=== PATIENT | male | born 1965 | race Caucasian/White ===

== ENCOUNTER 2016-11-06 21:41 | Inpatient (IN) | payer MEDICAID ==
[~2016-11-06] VITALS: Ht 170.2 cm; Wt 124.4 kg
[~2016-11-06 21:41] MED LIST: ASPI-556 PO; DILT30 PO; FLUO-191 PO; GABA-531 PO; NALT50 PO; OLAN5Z PO; TOPI25 PO
[2016-11-06] MEDS ORDERED: HALOPERIDOL 5 MG TABLET PO PRN (22:15)
[2016-11-06 22:25] VITALS: BP 123/75
[2016-11-06] MEDS ORDERED: INFLUENZA VIRUS VACCINE QVS 2016-17 (3YR+)/PF 60 MCG/0.5 ML SYRINGE IM ONE (22:45)
[2016-11-06] MEDS ORDERED: -PHARMACY VACCINE NOTE- MISC ONE ×2 (22:45)
[2016-11-07] MEDS: LORazepam 2 MG TABLET PO PRN ×2 (00:04→20:21)
[2016-11-07] MEDS: ZOLPIDEM TARTRATE 10 MG TABLET PO PRN ×2 (00:04→21:01)
[2016-11-07 00:39] VITALS: BP 124/69
[2016-11-07 07:50] LABS: BASOPHILS % (AUTO) 0.4 % (0.0-2.0); EOSINOPHILS % (AUTO) 6.7 % (1.0-6.0); HEMOGLOBIN 14.4 g/dL (13.5-17.5); LYMPHOCYTES % (AUTO) 13.4 % (22.0-44.0); MEAN CORPUSCULAR HEMOGLOBIN 28.3 pg (26.0-34.0); MEAN CORPUSCULAR HGB CONC 32.7 G/dL (31.0-37.0); MEAN CORPUSCULAR VOLUME 87 fL (80-100); MONOCYTES # (AUTO) 0.5 K/uL (0.1-1.0); MONOCYTES % (AUTO) 6.9 % (2.0-9.0); NEUTROPHILS # (AUTO) 5.3 K/uL (1.8-7.7); NEUTROPHILS % (AUTO) 72.6 % (40.0-70.0); PLATELET COUNT (AUTO) 122 K/uL (150-450); RED BLOOD CELL COUNT(AUTO) 5.08 MIL/uL (4.50-5.90); RED CELL DISTRIBUTION WIDTH 14.7 % (11.5-14.5); WHITE BLOOD COUNT (AUTO) 7.3 K/uL (4.5-11.0)
[2016-11-07 08:05] VITALS: BP 113/62
[2016-11-07 08:07] LABS: HEMOGLOBIN A1C 5.7 % (4.5-6.2)
[2016-11-07 08:27] LABS: ALANINE AMINOTRANSFERASE 42 U/L (12-78); ALBUMIN 3.1 g/dL (3.4-5.0); ANION GAP 8 mmol/L (8-16); ASPARTATE AMINOTRANSFERASE 38 U/L (15-37); BILIRUBIN,TOTAL 0.3 mg/dL (0.1-1.0); CALCIUM, TOTAL 8.6 mg/dL (8.8-10.5); CARBON DIOXIDE 29 mmol/L (22-29); CHLORIDE 103 mmol/L (98-107); CHOL/HDL RATIO 5.3 (4.2-7.3); CREATININE 0.87 mg/dL (0.60-1.30); GLOMERULAR FILTR. RATE CALC > 60 mL/min (>60); POTASSIUM 4.1 mmol/L (3.5-5.1); SODIUM SERUM 140 mmol/L (136-145); THYROID STIMULATING HORMONE 2.72 uIU/mL (0.36-3.74); TOTAL PROTEIN, SERUM 6.7 g/dL (6.4-8.2); UREA NITROGEN, BLOOD 11 mg/dL (7-18)
[2016-11-07] MEDS ORDERED: IBUPROFEN 400 MG TABLET PO PRN ×2 (10:00→22:00)
[2016-11-07] MEDS ORDERED: ACETAMINOPHEN 325 MG TABLET PO PRN ×2 (10:00→22:00)
[2016-11-07] MEDS: FLUoxetine HCL 20 MG CAPSULE PO SCH (13:33)
[2016-11-07 16:08] VITALS: BP 124/72
[2016-11-07] MEDS: OLANZapine 5 MG RAPDIS TABLET PO SCH (20:21)
[2016-11-08 07:10] VITALS: BP 124/73
[2016-11-08 08:29] VITALS: BP 115/65
[2016-11-08] MEDS: FLUoxetine HCL 20 MG CAPSULE PO SCH (08:33)
[2016-11-08] MEDS: ASPIRIN 81 MG EC TABLET PO SCH (08:33)
[2016-11-08] MEDS: DILTIAZEM HCL 30 MG TABLET PO SCH ×3 (08:33→16:21)
[2016-11-08 09:41] LABS: CHOL/HDL RATIO 5.1 (4.2-7.3)
[2016-11-08 16:00] VITALS: BP 130/76
[2016-11-08] MEDS: LORazepam 2 MG TABLET PO PRN (16:21)
[2016-11-08] MEDS: ZOLPIDEM TARTRATE 10 MG TABLET PO PRN (21:08)
[2016-11-08] MEDS: OLANZapine 5 MG RAPDIS TABLET PO SCH (21:08)
[2016-11-09 06:34] VITALS: BP 132/79
[2016-11-09 08:04] VITALS: BP 112/65
[2016-11-09] MEDS: DILTIAZEM HCL 30 MG TABLET PO SCH ×3 (08:38→16:27)
[2016-11-09] MEDS: ASPIRIN 81 MG EC TABLET PO SCH (08:38)
[2016-11-09] MEDS: FLUoxetine HCL 20 MG CAPSULE PO SCH (08:38)
[2016-11-09 16:09] VITALS: BP 138/78
[2016-11-09] MEDS: ZOLPIDEM TARTRATE 10 MG TABLET PO PRN (20:38)
[2016-11-09] MEDS: OLANZapine 5 MG RAPDIS TABLET PO SCH (20:38)
[2016-11-10 06:53] VITALS: BP 146/80
[2016-11-10 08:22] VITALS: BP 152/75
[2016-11-10] MEDS: DILTIAZEM HCL 30 MG TABLET PO SCH ×3 (09:04→16:02)
[2016-11-10] MEDS: FLUoxetine HCL 20 MG CAPSULE PO SCH (09:04)
[2016-11-10] MEDS: ASPIRIN 81 MG EC TABLET PO SCH (09:04)
[2016-11-10] MEDS: LORazepam 2 MG TABLET PO PRN ×3 (09:12→22:45)
[2016-11-10 16:00] VITALS: BP 133/85
[2016-11-10] MEDS: OLANZapine 5 MG RAPDIS TABLET PO SCH (20:06)
[2016-11-10] MEDS: ZOLPIDEM TARTRATE 10 MG TABLET PO PRN (20:08)
[2016-11-11 06:45] VITALS: BP 116/77
[2016-11-11 08:05] VITALS: BP 102/68
[2016-11-11] MEDS: FLUoxetine HCL 20 MG CAPSULE PO SCH (09:05)
[2016-11-11] MEDS: ASPIRIN 81 MG EC TABLET PO SCH (09:05)
[2016-11-11] MEDS: DILTIAZEM HCL 30 MG TABLET PO SCH ×3 (09:05→16:27)
[2016-11-11] MEDS: LORazepam 2 MG TABLET PO PRN (15:57)
[2016-11-11 16:00] VITALS: BP 135/83
[2016-11-11] MEDS: OLANZapine 5 MG RAPDIS TABLET PO SCH (20:27)
[2016-11-11] MEDS: ZOLPIDEM TARTRATE 10 MG TABLET PO PRN (20:45)
[2016-11-12] MEDS: LORazepam 2 MG TABLET PO PRN ×3 (00:08→16:08)
[2016-11-12 08:05] VITALS: BP 118/57
[2016-11-12] MEDS: DILTIAZEM HCL 30 MG TABLET PO SCH ×3 (09:34→16:08)
[2016-11-12] MEDS: FLUoxetine HCL 20 MG CAPSULE PO SCH (09:34)
[2016-11-12] MEDS: ASPIRIN 81 MG EC TABLET PO SCH (09:35)
[2016-11-12 16:00] VITALS: BP 144/82
[2016-11-12] MEDS: OLANZapine 5 MG RAPDIS TABLET PO SCH (20:56)
[2016-11-12] MEDS: ZOLPIDEM TARTRATE 10 MG TABLET PO PRN (21:10)
[2016-11-13 01:18] VITALS: BP 138/94
[2016-11-13] MEDS: LORazepam 2 MG TABLET PO PRN (01:19)
[2016-11-13 08:05] VITALS: BP 112/71
[2016-11-13] MEDS: FLUoxetine HCL 20 MG CAPSULE PO SCH (10:06)
[2016-11-13] MEDS: ASPIRIN 81 MG EC TABLET PO SCH (10:06)
[2016-11-13] MEDS: DILTIAZEM HCL 30 MG TABLET PO SCH ×2 (10:06→13:55)
== END 2016-11-13 15:15 | disposition home or self-care (01) | DRG 754 ==
LOC: B3A 22:04 → EDSTATUS 22:08
PROVIDERS: ADMIT Psychiatry & Neurology Psychiatry; ATTEND Psychiatry & Neurology Psychiatry
DX: F32.9 Major depressive disorder, single episode, unspecified (principal); I48.91 Unspecified atrial fibrillation; R45.851 Suicidal ideations; I10 Essential (primary) hypertension; I25.10 Atherosclerotic heart disease of native coronary artery without angina pectoris; Z95.0 Presence of cardiac pacemaker; Z28.21 Immunization not carried out because of patient refusal; Z88.0 Allergy status to penicillin; Z82.0 Family history of epilepsy and other diseases of the nervous system
CPT/HCPCS: 83036; 84439; 84443; 90471

== ENCOUNTER 2017-09-06 23:53 | Inpatient (IN) | payer MEDICAID ==
[~2017-09-06] VITALS: Ht 170.2 cm; Wt 120.0 kg
[~2017-09-06 23:53] MED LIST changes: -GABA-531 PO; -NALT50 PO; +OLAN5TAB40 PO; -OLAN5Z PO; -TOPI25 PO
[2017-09-07] MEDS ORDERED: DILT60SR PO (02:27)
[2017-09-07] MEDS ORDERED: METO50 PO (02:27)
[2017-09-07] MEDS ORDERED: SERT100T12 PO (02:27)
[2017-09-07] MEDS ORDERED: DILTIAZEM HCL 5 MG/ML 5 ML VIAL IVP ONE (03:15)
[2017-09-07] MEDS ORDERED: LORazepam 2 MG/ML VIAL IVP ONE (03:15)
[2017-09-07] MEDS ORDERED: SODIUM CHLORIDE 0.9% 1,000 ML IV ONE (03:15)
[2017-09-07] MEDS ORDERED: ASPIRIN 81 MG CHEWABLE TABLET PO ONE (03:15)
[2017-09-07 03:32] LABS: BASOPHILS # (AUTO) 0.02 K/uL (0.00-0.20); BASOPHILS % (AUTO) 0.2 % (0.0-2.0); EOSINOPHILS # (AUTO) 0.28 K/uL (0.00-0.70); EOSINOPHILS % (AUTO) 3.45 % (1.0-6.0); HEMATOCRIT 46.2 % (41-53); HEMOGLOBIN 15.3 g/dL (13.5-17.5); LYMPHOCYTES # (AUTO) 1.5 K/uL (1.0-4.8); LYMPHOCYTES % (AUTO) 18.1 % (22.0-44.0); MEAN CORPUSCULAR HEMOGLOBIN 28.9 pg (26.0-34.0); MEAN CORPUSCULAR HGB CONC 33.1 G/dL (31.0-37.0); MEAN CORPUSCULAR VOLUME 87 fL (80-100); MONOCYTES # (AUTO) 0.6 K/uL (0.1-1.0); MONOCYTES % (AUTO) 6.8 % (2.0-9.0); NEUTROPHILS # (AUTO) 5.8 K/uL (1.8-7.7); NEUTROPHILS % (AUTO) 71.4 % (40.0-70.0); PLATELET COUNT (AUTO) 103 K/uL (150-450); RED CELL DISTRIBUTION WIDTH 14.7 % (11.5-14.5); WHITE BLOOD COUNT (AUTO) 8.1 K/uL (4.5-11.0)
[2017-09-07 03:40] LABS: ANION GAP 9 mmol/L (8-16); CALCIUM, TOTAL 8.5 mg/dL (8.8-10.5); CARBON DIOXIDE 27 mmol/L (22-29); CHLORIDE 102 mmol/L (98-107); CREATININE 0.88 mg/dL (0.60-1.30); GLOMERULAR FILTR. RATE CALC > 60 mL/min (>60); POTASSIUM 3.1 mmol/L (3.5-5.1); SODIUM SERUM 138 mmol/L (136-145); UREA NITROGEN, BLOOD 18 mg/dL (7-18)
[2017-09-07 04:05] LABS: ALANINE AMINOTRANSFERASE 34 U/L (12-78); ALBUMIN 3.1 g/dL (3.4-5.0); ASPARTATE AMINOTRANSFERASE 20 U/L (15-37); BILIRUBIN,TOTAL 0.4 mg/dL (0.1-1.0); CREATINE KINASE MB 0.6 ng/mL (0-5); CREATINE KINASE, TOTAL 88 U/L (39-308); TOTAL PROTEIN, SERUM 6.9 g/dL (6.4-8.2)
[2017-09-07 06:08] LABS: APPEARANCE,URINE CLEAR (CLEAR); GLUCOSE, URINE (UA) NEGATIVE (NEGATIVE); KETONES,URINE NEGATIVE (NEGATIVE); LEUKOCYTE ESTERASE ,URINE NEGATIVE (NEGATIVE); OCCULT BLOOD,URINE NEGATIVE (NEGATIVE); PH,URINE 6.5 (5.0-8.0); PROTEIN,URINE NEGATIVE (NEGATIVE)
[2017-09-07 06:20] LABS: ADD UA MICROSCOPIC NO
[2017-09-07] MEDS ORDERED: POTASSIUM CHLORIDE 20 MEQ ER TABLET PO ONE (06:30)
[2017-09-07] MEDS ORDERED: ZOLPIDEM TARTRATE 10 MG TABLET PO PRN (07:45)
[2017-09-07 08:06] VITALS: BP 116/85
[2017-09-07 08:26] VITALS: BP 116/85
[2017-09-07] MEDS ORDERED: INFLUENZA VIRUS VACCINE QVS 2017-18 (3YR+)/PF 60 MCG/0.5 ML SYRINGE IM ONE (08:30)
[2017-09-07] MEDS ORDERED: -PHARMACY VACCINE NOTE- MISC ONE ×2 (08:30)
[2017-09-07] MEDS: LORazepam 2 MG TABLET PO PRN ×2 (16:29→21:38)
[2017-09-07 21:35] VITALS: BP 134/84
[2017-09-08 05:58] LABS: CHOL/HDL RATIO 6.2 (4.2-7.3); THYROID STIMULATING HORMONE 3.18 uIU/mL (0.36-3.74)
[2017-09-08] MEDS: HALOPERIDOL 5 MG TABLET PO PRN ×2 (08:11→14:13)
[2017-09-08] MEDS: LORazepam 2 MG TABLET PO PRN ×3 (08:11→21:13)
[2017-09-08] MEDS: DILTIAZEM HCL 30 MG TABLET PO SCH ×3 (08:13→20:03)
[2017-09-08 11:45] VITALS: BP 137/81
[2017-09-08] MEDS: GEMFIBROZIL 600 MG TABLET PO SCH (16:28)
[2017-09-08 20:31] VITALS: BP 115/78
[2017-09-08 22:34] VITALS: BP 130/98
[2017-09-09] MEDS: GEMFIBROZIL 600 MG TABLET PO SCH ×2 (06:59→17:44)
[2017-09-09] MEDS: DILTIAZEM HCL 30 MG TABLET PO SCH ×3 (08:54→17:44)
[2017-09-09] MEDS: LORazepam 2 MG TABLET PO PRN ×3 (08:55→19:56)
[2017-09-09 09:37] VITALS: BP 121/80
[2017-09-09 16:00] VITALS: BP 134/81
[2017-09-09 16:46] LABS: ANION GAP 7 mmol/L (8-16); CALCIUM, TOTAL 8.7 mg/dL (8.8-10.5); CARBON DIOXIDE 29 mmol/L (22-29); CHLORIDE 102 mmol/L (98-107); CREATININE 0.98 mg/dL (0.60-1.30); GLOMERULAR FILTR. RATE CALC > 60 mL/min (>60); POTASSIUM 4.1 mmol/L (3.5-5.1); SODIUM SERUM 138 mmol/L (136-145); UREA NITROGEN, BLOOD 11 mg/dL (7-18)
[2017-09-09] MEDS: METOPROLOL TARTRATE 25 MG TABLET PO SCH ×2 (17:44→17:46)
[2017-09-09 18:00] VITALS: BP 118/76
[2017-09-09 20:00] VITALS: BP 106/66
[2017-09-09] MEDS: OLANZapine 5 MG RAPDIS TABLET PO SCH (21:21)
[2017-09-10] VITALS (11 sets, daily range): BP systolic 111–134; BP diastolic 65–89
[2017-09-10] MEDS: GEMFIBROZIL 600 MG TABLET PO SCH ×2 (06:51→16:23)
[2017-09-10] MEDS: FLUoxetine HCL 20 MG CAPSULE PO SCH (09:19)
[2017-09-10] MEDS: METOPROLOL TARTRATE 25 MG TABLET PO SCH ×2 (09:19→16:24)
[2017-09-10] MEDS: DILTIAZEM HCL 30 MG TABLET PO SCH ×3 (09:20→16:23)
[2017-09-10] MEDS: LORazepam 2 MG TABLET PO PRN ×2 (09:21→20:26)
[2017-09-10] MEDS: OLANZapine 5 MG RAPDIS TABLET PO SCH (20:25)
[2017-09-11] VITALS (8 sets, daily range): BP systolic 106–126; BP diastolic 65–95
[2017-09-11] MEDS: GEMFIBROZIL 600 MG TABLET PO SCH ×2 (06:16→17:17)
[2017-09-11] MEDS: DILTIAZEM HCL 30 MG TABLET PO SCH ×3 (11:03→17:17)
[2017-09-11] MEDS: FLUoxetine HCL 20 MG CAPSULE PO SCH (11:03)
[2017-09-11] MEDS: METOPROLOL TARTRATE 25 MG TABLET PO SCH ×2 (11:03→17:17)
[2017-09-11] MEDS: OLANZapine 5 MG RAPDIS TABLET PO SCH (20:34)
[2017-09-11] MEDS: LORazepam 2 MG TABLET PO PRN (20:34)
[2017-09-12 06:26] VITALS: BP 132/76
[2017-09-12] MEDS: GEMFIBROZIL 600 MG TABLET PO SCH ×2 (06:48→16:49)
[2017-09-12 08:00] VITALS: BP 109/74
[2017-09-12] MEDS: FLUoxetine HCL 20 MG CAPSULE PO SCH (09:54)
[2017-09-12] MEDS: METOPROLOL TARTRATE 25 MG TABLET PO SCH ×2 (09:54→18:51)
[2017-09-12] MEDS: DILTIAZEM HCL 30 MG TABLET PO SCH ×3 (09:54→16:49)
[2017-09-12 10:00] VITALS: BP 129/82
[2017-09-12 12:00] VITALS: BP 138/86
[2017-09-12 14:00] VITALS: BP 113/66
[2017-09-12] MEDS: OLANZapine 5 MG RAPDIS TABLET PO SCH (20:23)
[2017-09-12] MEDS: LORazepam 2 MG TABLET PO PRN (21:03)
[2017-09-13] MEDS: GEMFIBROZIL 600 MG TABLET PO SCH ×2 (06:16→17:20)
[2017-09-13 06:34] VITALS: BP 126/97
[2017-09-13 08:15] VITALS: BP 118/68
[2017-09-13] MEDS: DILTIAZEM HCL 30 MG TABLET PO SCH ×3 (10:02→17:20)
[2017-09-13] MEDS: FLUoxetine HCL 20 MG CAPSULE PO SCH (10:03)
[2017-09-13] MEDS: METOPROLOL TARTRATE 25 MG TABLET PO SCH ×2 (10:03→17:20)
[2017-09-13 19:52] VITALS: BP 115/62
[2017-09-13] MEDS: OLANZapine 5 MG RAPDIS TABLET PO SCH (20:17)
[2017-09-13] MEDS: LORazepam 2 MG TABLET PO PRN (20:17)
[2017-09-14 06:38] VITALS: BP 147/83
[2017-09-14] MEDS: GEMFIBROZIL 600 MG TABLET PO SCH ×2 (06:48→16:07)
[2017-09-14] MEDS: DILTIAZEM HCL 30 MG TABLET PO SCH ×3 (09:22→16:07)
[2017-09-14] MEDS: METOPROLOL TARTRATE 25 MG TABLET PO SCH ×2 (09:23→16:07)
[2017-09-14] MEDS: FLUoxetine HCL 20 MG CAPSULE PO SCH (09:23)
[2017-09-14 11:03] VITALS: BP 116/73
[2017-09-14] MEDS: LORazepam 2 MG TABLET PO PRN ×2 (16:08→20:48)
[2017-09-14 16:30] VITALS: BP 126/75
[2017-09-14] MEDS: OLANZapine 5 MG RAPDIS TABLET PO SCH (20:49)
[2017-09-15] MEDS: GEMFIBROZIL 600 MG TABLET PO SCH ×2 (06:24→16:54)
[2017-09-15 08:46] VITALS: BP 116/72
[2017-09-15] MEDS: DILTIAZEM HCL 30 MG TABLET PO SCH ×3 (09:39→16:54)
[2017-09-15] MEDS: FLUoxetine HCL 20 MG CAPSULE PO SCH (09:40)
[2017-09-15] MEDS: METOPROLOL TARTRATE 25 MG TABLET PO SCH ×2 (09:40→16:54)
[2017-09-15] MEDS: LORazepam 2 MG TABLET PO PRN ×2 (13:40→20:08)
[2017-09-15] MEDS ORDERED: FLUO-191 PO (14:25)
[2017-09-15] MEDS ORDERED: OLAN5TAB40 PO (14:25)
[2017-09-15] MEDS ORDERED: METO25 PO (14:27)
[2017-09-15] MEDS ORDERED: GEMF600T3 PO (14:27)
[2017-09-15] MEDS ORDERED: DILT30 PO (14:27)
[2017-09-15 19:46] VITALS: BP 123/73
[2017-09-15] MEDS: HALOPERIDOL 5 MG TABLET PO PRN (20:09)
[2017-09-15] MEDS: OLANZapine 5 MG RAPDIS TABLET PO SCH (20:10)
[2017-09-16] MEDS: GEMFIBROZIL 600 MG TABLET PO SCH (06:39)
[2017-09-16] MEDS: DILTIAZEM HCL 30 MG TABLET PO SCH ×2 (09:00→10:42)
[2017-09-16] MEDS: METOPROLOL TARTRATE 25 MG TABLET PO SCH (09:00)
[2017-09-16] MEDS: FLUoxetine HCL 20 MG CAPSULE PO SCH (09:00)
== END 2017-09-16 07:30 | disposition home or self-care (01) | DRG 750 ==
LOC: EMS 09-07 02:20 → AHU 09-07 07:55 → 3EI 09-08 22:15
PROVIDERS: ADMIT Psychiatry & Neurology Child & Adolescent Psychiatry; ATTEND Psychiatry & Neurology Child & Adolescent Psychiatry
PROC: 4B02XSZ Measurement of Cardiac Pacemaker, External Approach (ICD-10-PCS; principal; 2017-09-14)
DX: F25.1 Schizoaffective disorder, depressive type (principal); F33.2 Major depressive disorder, recurrent severe without psychotic features; E44.1 Mild protein-calorie malnutrition; R45.851 Suicidal ideations; Z68.41 Body mass index [BMI] 40.0-44.9, adult; I10 Essential (primary) hypertension; E78.5 Hyperlipidemia, unspecified; E87.6 Hypokalemia; F10.239 Alcohol dependence with withdrawal, unspecified; I48.0 Paroxysmal atrial fibrillation; Z59.0 Homelessness; Z82.49 Family history of ischemic heart disease and other diseases of the circulatory system; Z91.5 Personal history of self-harm; Z95.0 Presence of cardiac pacemaker; Z88.0 Allergy status to penicillin; Z79.82 Long term (current) use of aspirin; Z79.899 Other long term (current) drug therapy
CPT/HCPCS: 84439; 84443; 93005; 96360; 96361; 96374; 96375; 99291; G0480; J2060; J3490

== ENCOUNTER 2017-09-21 19:14 | Inpatient (IN) | payer MEDICAID ==
[~2017-09-21] VITALS: Ht 172.7 cm; Wt 119.7 kg
[~2017-09-21 19:14] MED LIST changes: -ASPI-556 PO; +GEMF600T3 PO; +METO25 PO
[2017-09-21 20:48] VITALS: BP 156/92
[2017-09-21 21:30] VITALS: BP 138/82
[2017-09-21] MEDS ORDERED: -PHARMACY VACCINE NOTE- MISC ONE (21:30)
[2017-09-21] MEDS: LORazepam 2 MG TABLET PO PRN (22:00)
[2017-09-21] MEDS ORDERED: INFLUENZA VIRUS VACCINE QVS 2017-18 (3YR+)/PF 60 MCG/0.5 ML SYRINGE IM ONE (22:15)
[2017-09-21] MEDS: ZOLPIDEM TARTRATE 10 MG TABLET PO PRN (23:00)
[2017-09-22 00:20] VITALS: BP 133/77
[2017-09-22 08:10] LABS: BASOPHILS % (AUTO) 0.4 % (0.0-2.0); EOSINOPHILS % (AUTO) 2.8 % (1.0-6.0); HEMATOCRIT 46.5 % (41-53); HEMOGLOBIN 15.5 g/dL (13.5-17.5); LYMPHOCYTES # (AUTO) 1.4 K/uL (1.0-4.8); LYMPHOCYTES % (AUTO) 19.6 % (22.0-44.0); MEAN CORPUSCULAR HEMOGLOBIN 29.5 pg (26.0-34.0); MEAN CORPUSCULAR HGB CONC 33.4 G/dL (31.0-37.0); MEAN CORPUSCULAR VOLUME 88 fL (80-100); MONOCYTES # (AUTO) 0.6 K/uL (0.1-1.0); MONOCYTES % (AUTO) 7.9 % (2.0-9.0); NEUTROPHILS # (AUTO) 4.9 K/uL (1.8-7.7); NEUTROPHILS % (AUTO) 69.3 % (40.0-70.0); PLATELET COUNT (AUTO) 160 K/uL (150-450); RED BLOOD CELL COUNT(AUTO) 5.25 MIL/uL (4.50-5.90); RED CELL DISTRIBUTION WIDTH 14.5 % (11.5-14.5)
[2017-09-22] MEDS ORDERED: MAG HYDROX/AL HYDROX/SIMETH ES 30 ML SUSPENSION UDCUP PO PRN (08:30)
[2017-09-22] MEDS ORDERED: BACITRACIN 28.4 GM OINTMENT TP PRN (08:30)
[2017-09-22] MEDS ORDERED: LOPERAMIDE HCL 2 MG CAPSULE PO PRN (08:30)
[2017-09-22] MEDS ORDERED: IBUPROFEN 600 MG TABLET PO PRN (08:30)
[2017-09-22] MEDS ORDERED: MAGNESIUM HYDROXIDE SUSPENSION 30 ML UDCUP PO PRN (08:30)
[2017-09-22] MEDS ORDERED: BENZOCAINE/MENTHOL LOZENGE MM PRN (08:30)
[2017-09-22] MEDS ORDERED: ONDANSETRON HCL 4 MG TABLET PO PRN (08:30)
[2017-09-22] MEDS ORDERED: ACETAMINOPHEN 325 MG TABLET PO PRN (08:30)
[2017-09-22] MEDS ORDERED: ALBUTEROL SULFATE HFA 90 MCG/PUFF 8 GM INHALER IH PRN (08:30)
[2017-09-22] MEDS ORDERED: CloNIDine HCL 0.1 MG TABLET PO PRN (08:30)
[2017-09-22] MEDS ORDERED: PETROLATUM,WHITE 71 GM JELLY TP PRN (08:30)
[2017-09-22 08:35] LABS: ALANINE AMINOTRANSFERASE 41 U/L (12-78); ALBUMIN 3.3 g/dL (3.4-5.0); ALKALINE PHOSPHATASE 64 U/L (46-116); ANION GAP 3 mmol/L (8-16); ASPARTATE AMINOTRANSFERASE 16 U/L (15-37); BILIRUBIN,TOTAL 0.3 mg/dL (0.1-1.0); CALCIUM, TOTAL 8.6 mg/dL (8.8-10.5); CARBON DIOXIDE 31 mmol/L (22-29); CHLORIDE 107 mmol/L (98-107); CHOLESTEROL 147 mg/dL (131-200); CREATININE 0.85 mg/dL (0.60-1.30); GLOMERULAR FILTR. RATE CALC > 60 mL/min (>60); GLUCOSE,RANDOM 104 mg/dL (70-110); HDL CHOLESTEROL 21 mg/dL (40-60); LDL CHOL (CALC.) 78 mg/dL (0-130); SODIUM SERUM 141 mmol/L (136-145); TOTAL PROTEIN, SERUM 6.9 g/dL (6.4-8.2); TRIGLYCERIDES 240 mg/dL (15-150); UREA NITROGEN, BLOOD 12 mg/dL (7-18)
[2017-09-22 08:47] VITALS: BP 120/66
[2017-09-22] MEDS: DILTIAZEM HCL 30 MG TABLET PO SCH ×3 (09:17→16:20)
[2017-09-22] MEDS: FLUoxetine HCL 20 MG CAPSULE PO SCH ×2 (09:17→11:44)
[2017-09-22] MEDS: METOPROLOL TARTRATE 25 MG TABLET PO SCH ×2 (09:17→16:20)
[2017-09-22] MEDS: LORazepam 2 MG TABLET PO PRN ×4 (09:17→21:29)
[2017-09-22] MEDS: OMEPRAZOLE 20 MG CAPSULE PO SCH (09:18)
[2017-09-22] MEDS: DOCUSATE SODIUM 100 MG CAPSULE PO SCH (09:18)
[2017-09-22 16:28] VITALS: BP 117/79
[2017-09-22] MEDS: ZOLPIDEM TARTRATE 10 MG TABLET PO PRN (20:03)
[2017-09-22] MEDS: OLANZapine 7.5 MG TABLET PO SCH (21:00)
[2017-09-23 01:44] VITALS: BP 120/80
[2017-09-23] MEDS: LORazepam 2 MG TABLET PO PRN ×5 (01:48→21:55)
[2017-09-23 08:41] VITALS: BP 125/70
[2017-09-23] MEDS: METOPROLOL TARTRATE 25 MG TABLET PO SCH ×2 (09:33→17:13)
[2017-09-23] MEDS: DOCUSATE SODIUM 100 MG CAPSULE PO SCH (09:33)
[2017-09-23] MEDS: DILTIAZEM HCL 30 MG TABLET PO SCH ×3 (09:33→17:13)
[2017-09-23] MEDS: OMEPRAZOLE 20 MG CAPSULE PO SCH (09:33)
[2017-09-23] MEDS: FLUoxetine HCL 20 MG CAPSULE PO SCH ×2 (09:33→09:34)
[2017-09-23 16:52] VITALS: BP 114/87
[2017-09-23] MEDS: GEMFIBROZIL 600 MG TABLET PO SCH (17:14)
[2017-09-23] MEDS: OLANZapine 7.5 MG TABLET PO SCH (20:31)
[2017-09-23] MEDS: ZOLPIDEM TARTRATE 10 MG TABLET PO PRN (20:31)
[2017-09-24 00:13] VITALS: BP 122/83
[2017-09-24] MEDS: GEMFIBROZIL 600 MG TABLET PO SCH ×2 (06:11→16:02)
[2017-09-24 09:16] VITALS: BP 115/70
[2017-09-24] MEDS: DILTIAZEM HCL 30 MG TABLET PO SCH ×3 (09:24→16:02)
[2017-09-24] MEDS: METOPROLOL TARTRATE 25 MG TABLET PO SCH ×2 (09:24→16:02)
[2017-09-24] MEDS: FLUoxetine HCL 20 MG CAPSULE PO SCH (09:24)
[2017-09-24] MEDS: OMEPRAZOLE 20 MG CAPSULE PO SCH (09:24)
[2017-09-24] MEDS: DOCUSATE SODIUM 100 MG CAPSULE PO SCH (09:24)
[2017-09-24] MEDS: LORazepam 2 MG TABLET PO PRN ×3 (09:41→20:05)
[2017-09-24 16:00] VITALS: BP 128/86
[2017-09-24] MEDS: OMEGA-3/DHA/EPA/FISH OIL 1,000 MG CAPSULE PO SCH (16:02)
[2017-09-24] MEDS: ZOLPIDEM TARTRATE 10 MG TABLET PO PRN (21:00)
[2017-09-25 00:17] VITALS: BP 108/65
[2017-09-25] MEDS: LORazepam 2 MG TABLET PO PRN ×4 (01:30→22:01)
[2017-09-25] MEDS: GEMFIBROZIL 600 MG TABLET PO SCH ×2 (05:52→16:02)
[2017-09-25 08:28] VITALS: BP 100/59
[2017-09-25] MEDS: METOPROLOL TARTRATE 25 MG TABLET PO SCH ×2 (09:17→16:02)
[2017-09-25] MEDS: DOCUSATE SODIUM 100 MG CAPSULE PO SCH (09:17)
[2017-09-25] MEDS: OMEPRAZOLE 20 MG CAPSULE PO SCH (09:17)
[2017-09-25] MEDS: ARIPiprazole 5 MG TABLET PO SCH (09:17)
[2017-09-25] MEDS: OMEGA-3/DHA/EPA/FISH OIL 1,000 MG CAPSULE PO SCH (09:17)
[2017-09-25] MEDS: DILTIAZEM HCL 30 MG TABLET PO SCH ×3 (09:17→16:19)
[2017-09-25] MEDS: FLUoxetine HCL 20 MG CAPSULE PO SCH (09:17)
[2017-09-25 15:53] VITALS: BP 119/73
[2017-09-25 16:37] VITALS: BP 119/73
[2017-09-25] MEDS: ZOLPIDEM TARTRATE 10 MG TABLET PO PRN (20:10)
[2017-09-26 02:25] VITALS: BP 121/69
[2017-09-26 09:01] VITALS: BP 120/77
[2017-09-26] MEDS: LORazepam 2 MG TABLET PO PRN ×4 (09:22→22:23)
[2017-09-26] MEDS: OMEGA-3/DHA/EPA/FISH OIL 1,000 MG CAPSULE PO SCH (09:22)
[2017-09-26] MEDS: FLUoxetine HCL 20 MG CAPSULE PO SCH (09:22)
[2017-09-26] MEDS: METOPROLOL TARTRATE 50 MG TABLET PO SCH ×2 (09:22→17:12)
[2017-09-26] MEDS: ARIPiprazole 5 MG TABLET PO SCH (09:22)
[2017-09-26] MEDS: DOCUSATE SODIUM 100 MG CAPSULE PO SCH (09:23)
[2017-09-26] MEDS: DILTIAZEM HCL 30 MG TABLET PO SCH ×3 (09:23→17:12)
[2017-09-26] MEDS: OMEPRAZOLE 20 MG CAPSULE PO SCH (09:23)
[2017-09-26 17:24] VITALS: BP 116/63
[2017-09-26] MEDS: ZOLPIDEM TARTRATE 10 MG TABLET PO PRN (20:14)
[2017-09-27 01:33] VITALS: BP 123/72
[2017-09-27] MEDS: LORazepam 2 MG TABLET PO PRN ×3 (06:56→17:33)
[2017-09-27 08:45] VITALS: BP 121/67
[2017-09-27] MEDS: DOCUSATE SODIUM 100 MG CAPSULE PO SCH (09:00)
[2017-09-27] MEDS: ARIPiprazole 5 MG TABLET PO SCH (09:27)
[2017-09-27] MEDS: OMEGA-3/DHA/EPA/FISH OIL 1,000 MG CAPSULE PO SCH (09:27)
[2017-09-27] MEDS: DILTIAZEM HCL 30 MG TABLET PO SCH ×3 (09:27→16:18)
[2017-09-27] MEDS: METOPROLOL TARTRATE 50 MG TABLET PO SCH ×2 (09:27→16:17)
[2017-09-27] MEDS: OMEPRAZOLE 20 MG CAPSULE PO SCH (09:27)
[2017-09-27] MEDS: FLUoxetine HCL 20 MG CAPSULE PO SCH (09:28)
[2017-09-27 13:05] VITALS: BP 120/79
[2017-09-27 16:38] VITALS: BP 114/67
[2017-09-27] MEDS ORDERED: DOCUSATE SODIUM 100 MG CAPSULE PO PRN (20:45)
[2017-09-27] MEDS: ZOLPIDEM TARTRATE 10 MG TABLET PO PRN (21:04)
[2017-09-28 00:49] VITALS: BP 109/75
[2017-09-28] MEDS: LORazepam 2 MG TABLET PO PRN ×4 (05:58→22:17)
[2017-09-28 08:14] VITALS: BP 112/62
[2017-09-28] MEDS: ARIPiprazole 5 MG TABLET PO SCH (08:40)
[2017-09-28] MEDS: OMEPRAZOLE 20 MG CAPSULE PO SCH (08:40)
[2017-09-28] MEDS: METOPROLOL TARTRATE 50 MG TABLET PO SCH ×2 (08:41→16:21)
[2017-09-28] MEDS: OMEGA-3/DHA/EPA/FISH OIL 1,000 MG CAPSULE PO SCH (08:41)
[2017-09-28] MEDS: FLUoxetine HCL 20 MG CAPSULE PO SCH (08:41)
[2017-09-28] MEDS: DILTIAZEM HCL 30 MG TABLET PO SCH ×3 (08:41→16:21)
[2017-09-28 16:37] VITALS: BP 111/80
[2017-09-28] MEDS: ZOLPIDEM TARTRATE 10 MG TABLET PO PRN (21:03)
[2017-09-29 01:51] VITALS: BP 110/62
[2017-09-29 08:11] VITALS: BP 121/68
[2017-09-29] MEDS: FLUoxetine HCL 20 MG CAPSULE PO SCH (08:23)
[2017-09-29] MEDS: METOPROLOL TARTRATE 50 MG TABLET PO SCH ×2 (08:23→16:38)
[2017-09-29] MEDS: ARIPiprazole 10 MG TABLET PO SCH (08:23)
[2017-09-29] MEDS: OMEPRAZOLE 20 MG CAPSULE PO SCH (08:23)
[2017-09-29] MEDS: DILTIAZEM HCL 30 MG TABLET PO SCH ×3 (08:23→16:37)
[2017-09-29] MEDS: OMEGA-3/DHA/EPA/FISH OIL 1,000 MG CAPSULE PO SCH (08:29)
[2017-09-29] MEDS: LORazepam 2 MG TABLET PO PRN ×3 (09:38→18:43)
[2017-09-29 16:47] VITALS: BP 115/68
[2017-09-29] MEDS: ZOLPIDEM TARTRATE 10 MG TABLET PO PRN (20:02)
[2017-09-30 02:35] VITALS: BP 139/92
[2017-09-30] MEDS: LORazepam 2 MG TABLET PO PRN ×4 (07:15→22:25)
[2017-09-30 08:23] VITALS: BP 135/69
[2017-09-30] MEDS: DILTIAZEM HCL 30 MG TABLET PO SCH ×3 (08:46→16:24)
[2017-09-30] MEDS: OMEGA-3/DHA/EPA/FISH OIL 1,000 MG CAPSULE PO SCH (08:46)
[2017-09-30] MEDS: METOPROLOL TARTRATE 50 MG TABLET PO SCH ×2 (08:46→16:24)
[2017-09-30] MEDS: ARIPiprazole 10 MG TABLET PO SCH (08:46)
[2017-09-30] MEDS: FLUoxetine HCL 20 MG CAPSULE PO SCH (08:46)
[2017-09-30] MEDS: OMEPRAZOLE 20 MG CAPSULE PO SCH (08:47)
[2017-09-30 12:24] VITALS: BP 125/72
[2017-09-30 16:20] VITALS: BP 134/86
[2017-09-30] MEDS: ZOLPIDEM TARTRATE 10 MG TABLET PO PRN (20:21)
[2017-10-01 02:42] VITALS: BP 129/76
[2017-10-01 08:41] VITALS: BP 130/78
[2017-10-01] MEDS: LORazepam 2 MG TABLET PO PRN ×3 (08:56→19:21)
[2017-10-01] MEDS: OMEPRAZOLE 20 MG CAPSULE PO SCH (08:56)
[2017-10-01] MEDS: OMEGA-3/DHA/EPA/FISH OIL 1,000 MG CAPSULE PO SCH (08:56)
[2017-10-01] MEDS: ARIPiprazole 10 MG TABLET PO SCH (08:57)
[2017-10-01] MEDS: METOPROLOL TARTRATE 50 MG TABLET PO SCH ×2 (08:57→16:17)
[2017-10-01] MEDS: FLUoxetine HCL 20 MG CAPSULE PO SCH (08:57)
[2017-10-01] MEDS: DILTIAZEM HCL 30 MG TABLET PO SCH ×3 (08:57→16:17)
[2017-10-01 16:00] VITALS: BP 136/83
[2017-10-01] MEDS: ZOLPIDEM TARTRATE 10 MG TABLET PO PRN (20:30)
[2017-10-02 00:49] VITALS: BP 125/88
[2017-10-02] MEDS: FLUoxetine HCL 20 MG CAPSULE PO SCH (08:30)
[2017-10-02] MEDS: OMEPRAZOLE 20 MG CAPSULE PO SCH (08:30)
[2017-10-02] MEDS: DILTIAZEM HCL 30 MG TABLET PO SCH ×2 (08:30→12:44)
[2017-10-02] MEDS: ARIPiprazole 10 MG TABLET PO SCH (08:30)
[2017-10-02] MEDS: METOPROLOL TARTRATE 50 MG TABLET PO SCH (08:30)
[2017-10-02] MEDS: OMEGA-3/DHA/EPA/FISH OIL 1,000 MG CAPSULE PO SCH (08:30)
[2017-10-02 08:37] VITALS: BP 117/64
[2017-10-02] MEDS ORDERED: ARIP10TA8 PO (12:29)
[2017-10-02] MEDS ORDERED: OMEP20 PO (12:29)
[2017-10-02] MEDS ORDERED: OMEG-135 PO (12:29)
== END 2017-10-02 13:24 | disposition home or self-care (01) | DRG 754 ==
LOC: B2S 21:04 → EDSTATUS 21:07 → B2S 09-26 19:00
PROVIDERS: ADMIT Psychiatry & Neurology Child & Adolescent Psychiatry; ATTEND Psychiatry & Neurology Child & Adolescent Psychiatry
DX: F32.9 Major depressive disorder, single episode, unspecified (principal); R45.851 Suicidal ideations; Z68.41 Body mass index [BMI] 40.0-44.9, adult; F25.1 Schizoaffective disorder, depressive type; E83.51 Hypocalcemia; I10 Essential (primary) hypertension; I48.91 Unspecified atrial fibrillation; E78.1 Pure hyperglyceridemia; E66.9 Obesity, unspecified; K59.00 Constipation, unspecified; G47.00 Insomnia, unspecified; Z79.899 Other long term (current) drug therapy; Z91.19 Patient's noncompliance with other medical treatment and regimen; Z59.0 Homelessness; Z88.0 Allergy status to penicillin; Z95.0 Presence of cardiac pacemaker; Z28.21 Immunization not carried out because of patient refusal
CPT/HCPCS: 82652; 84443; 87081; 99285

== ENCOUNTER 2019-06-07 00:27 | Inpatient (IN) | payer MEDICAID ==
[~2019-06-07] VITALS: Ht 172.7 cm; Wt 122.0 kg
[~2019-06-07 00:27] MED LIST changes: +DILT240T13 PO; -DILT30 PO; -FLUO-191 PO; +FOLI1 PO; -GEMF600T3 PO; +METO200T49 PO; -METO25 PO; +MULT-1239 PO; +OLAN2.5T3 PO; -OLAN5TAB40 PO; +OMEP20 PO; +SERT100T12 PO; +THIA100T67 PO
[2019-06-07] MEDS ORDERED: QUEtiapine FUMARATE 100 MG TABLET PO PRN (03:00)
[2019-06-07] MEDS: LORazepam 2 MG TABLET PO PRN ×4 (04:24→20:57)
[2019-06-07 04:38] VITALS: BP 116/98
[2019-06-07] MEDS ORDERED: IBUPROFEN 600 MG TABLET PO PRN (07:30)
[2019-06-07] MEDS ORDERED: CloNIDine HCL 0.1 MG TABLET PO PRN (07:30)
[2019-06-07] MEDS ORDERED: ACETAMINOPHEN 325 MG TABLET PO PRN (07:30)
[2019-06-07] MEDS ORDERED: MAGNESIUM HYDROXIDE SUSPENSION 30 ML UDCUP PO PRN (07:30)
[2019-06-07] MEDS ORDERED: ONDANSETRON HCL 4 MG TABLET PO PRN (07:30)
[2019-06-07] MEDS ORDERED: BENZOCAINE/MENTHOL LOZENGE MM PRN (07:30)
[2019-06-07] MEDS ORDERED: PETROLATUM,WHITE 28 GM JELLY TP PRN (07:30)
[2019-06-07] MEDS ORDERED: BACITRACIN 28.4 GM OINTMENT TP PRN (07:30)
[2019-06-07] MEDS ORDERED: ALBUTEROL SULFATE HFA 90 MCG/PUFF 8 GM INHALER IH PRN (07:30)
[2019-06-07] MEDS ORDERED: MAG HYDROX/AL HYDROX/SIMETH ES 30 ML SUSPENSION UDCUP PO PRN (07:30)
[2019-06-07] MEDS ORDERED: LOPERAMIDE HCL 2 MG CAPSULE PO PRN (07:30)
[2019-06-07] MEDS: MULTIVITAMINS WITH MINERALS, THERAPEUTIC TABLET PO SCH (09:28)
[2019-06-07] MEDS: FOLIC ACID 1 MG TABLET PO SCH (09:28)
[2019-06-07] MEDS: OMEPRAZOLE 20 MG CAPSULE PO SCH (09:28)
[2019-06-07] MEDS: DOCUSATE SODIUM 100 MG CAPSULE PO SCH (09:28)
[2019-06-07] MEDS: METOPROLOL SUCCINATE 50 MG ER TABLET PO SCH ×2 (11:31→20:57)
[2019-06-07] MEDS ORDERED: ChlordiazePOXIDE HCL 25 MG CAPSULE PO PRN (12:00)
[2019-06-07] MEDS: ARIPiprazole 5 MG TABLET PO SCH (12:24)
[2019-06-07 12:52] VITALS: BP 111/79
[2019-06-07 13:52] VITALS: BP 110/80
[2019-06-07 14:52] VITALS: BP 110/72
[2019-06-07 16:00] VITALS: BP 116/68
[2019-06-07 20:00] VITALS: BP 128/85
[2019-06-07] MEDS: SERTRALINE HCL 100 MG TABLET PO SCH (20:57)
[2019-06-08 01:47] VITALS: BP 115/82
[2019-06-08] MEDS ORDERED: ChlordiazePOXIDE HCL 25 MG CAPSULE PO PRN (07:00)
[2019-06-08 07:05] VITALS: BP 108/79
[2019-06-08 08:12] VITALS: BP 133/61
[2019-06-08 08:24] LABS: BASOPHILS % (AUTO) 0.5 % (0.0-2.0); EOSINOPHILS % (AUTO) 1.6 % (1.0-6.0); HEMATOCRIT 46.1 % (41-53); LYMPHOCYTES # (AUTO) 1.2 K/uL (1.0-4.8); MEAN CORPUSCULAR HEMOGLOBIN 29.8 pg (26.0-34.0); MEAN CORPUSCULAR HGB CONC 32.5 G/dL (31.0-37.0); MEAN CORPUSCULAR VOLUME 92 fL (80-100); MONOCYTES # (AUTO) 0.4 K/uL (0.1-1.0); MONOCYTES % (AUTO) 6.4 % (2.0-9.0); NEUTROPHILS # (AUTO) 3.9 K/uL (1.8-7.7); NEUTROPHILS % (AUTO) 70.5 % (40.0-70.0); PLATELET COUNT (AUTO) 143 K/uL (150-450); RED BLOOD CELL COUNT(AUTO) 5.02 MIL/uL (4.50-5.90); RED CELL DISTRIBUTION WIDTH 15.2 % (11.5-14.5)
[2019-06-08] MEDS: METOPROLOL SUCCINATE 50 MG ER TABLET PO SCH ×2 (08:27→20:17)
[2019-06-08] MEDS: FOLIC ACID 1 MG TABLET PO SCH (08:27)
[2019-06-08] MEDS: ChlordiazePOXIDE HCL 25 MG CAPSULE PO SCH ×4 (08:27→20:17)
[2019-06-08] MEDS: MULTIVITAMINS WITH MINERALS, THERAPEUTIC TABLET PO SCH (08:27)
[2019-06-08] MEDS: DOCUSATE SODIUM 100 MG CAPSULE PO SCH (08:27)
[2019-06-08] MEDS: ARIPiprazole 5 MG TABLET PO SCH (08:27)
[2019-06-08] MEDS: OMEPRAZOLE 20 MG CAPSULE PO SCH (08:27)
[2019-06-08 08:51] LABS: HEMOGLOBIN A1C 5.3 % (4.5-6.2)
[2019-06-08 08:59] LABS: ALANINE AMINOTRANSFERASE 39 U/L (12-78); ALKALINE PHOSPHATASE 74 U/L (46-116); ANION GAP 3 mmol/L (8-16); ASPARTATE AMINOTRANSFERASE 22 U/L (15-37); BILIRUBIN,TOTAL 0.4 mg/dL (0.1-1.0); CALCIUM, TOTAL 8.4 mg/dL (8.8-10.5); CARBON DIOXIDE 32 mmol/L (22-29); CHLORIDE 105 mmol/L (98-107); CHOLESTEROL 171 mg/dL (131-200); CREATININE 0.84 mg/dL (0.60-1.30); FREE T4 (FREE THYROXINE) 0.69 ng/dL (0.76-1.46); GLOMERULAR FILTR. RATE CALC > 60 mL/min (>60); GLUCOSE,RANDOM 89 mg/dL (70-110); HDL CHOLESTEROL 34 mg/dL (40-60); LDL CHOL (CALC.) 111 mg/dL (0-130); POTASSIUM 3.8 mmol/L (3.5-5.1); SODIUM SERUM 140 mmol/L (136-145); THYROID STIMULATING HORMONE 2.98 uIU/mL (0.36-3.74); TOTAL PROTEIN, SERUM 5.9 g/dL (6.4-8.2); TRIGLYCERIDES 132 mg/dL (15-150); UREA NITROGEN, BLOOD 7 mg/dL (7-18)
[2019-06-08 11:52] VITALS: BP 123/73
[2019-06-08] MEDS: LORazepam 2 MG TABLET PO PRN (16:11)
[2019-06-08 16:13] VITALS: BP 118/74
[2019-06-08] MEDS: ZOLPIDEM TARTRATE 10 MG TABLET PO PRN (20:18)
[2019-06-08] MEDS: SERTRALINE HCL 100 MG TABLET PO SCH (20:18)
[2019-06-09 02:09] VITALS: BP 135/79
[2019-06-09] MEDS: LORazepam 2 MG TABLET PO PRN ×2 (02:12→22:31)
[2019-06-09 08:18] VITALS: BP 133/80
[2019-06-09] MEDS: ARIPiprazole 5 MG TABLET PO SCH (08:48)
[2019-06-09] MEDS: DOCUSATE SODIUM 100 MG CAPSULE PO SCH (08:48)
[2019-06-09] MEDS: FOLIC ACID 1 MG TABLET PO SCH (08:48)
[2019-06-09] MEDS: ChlordiazePOXIDE HCL 25 MG CAPSULE PO SCH ×4 (08:48→20:32)
[2019-06-09] MEDS: MULTIVITAMINS WITH MINERALS, THERAPEUTIC TABLET PO SCH (08:49)
[2019-06-09] MEDS: METOPROLOL SUCCINATE 50 MG ER TABLET PO SCH ×2 (08:49→20:33)
[2019-06-09] MEDS: OMEPRAZOLE 20 MG CAPSULE PO SCH (08:49)
[2019-06-09 12:00] VITALS: BP 120/75
[2019-06-09 16:00] VITALS: BP 127/76
[2019-06-09] MEDS ORDERED: SERTRALINE HCL 100 MG TABLET PO SCH (21:00)
[2019-06-10] MEDS ORDERED: ChlordiazePOXIDE HCL 10 MG CAPSULE PO PRN (07:00)
[2019-06-10 07:06] VITALS: BP 117/74
[2019-06-10 08:17] VITALS: BP 133/83
[2019-06-10] MEDS: METOPROLOL SUCCINATE 50 MG ER TABLET PO SCH ×2 (08:42→20:46)
[2019-06-10] MEDS: MULTIVITAMINS WITH MINERALS, THERAPEUTIC TABLET PO SCH (08:42)
[2019-06-10] MEDS: OMEPRAZOLE 20 MG CAPSULE PO SCH (08:42)
[2019-06-10] MEDS: ARIPiprazole 5 MG TABLET PO SCH (08:42)
[2019-06-10] MEDS: DOCUSATE SODIUM 100 MG CAPSULE PO SCH (08:42)
[2019-06-10] MEDS: ChlordiazePOXIDE HCL 10 MG CAPSULE PO SCH ×4 (08:43→20:47)
[2019-06-10] MEDS: FOLIC ACID 1 MG TABLET PO SCH (08:43)
[2019-06-10] MEDS: LORazepam 2 MG TABLET PO PRN ×2 (14:12→20:47)
[2019-06-10 16:09] VITALS: BP 133/76
[2019-06-10 18:49] VITALS: BP 133/76
[2019-06-10] MEDS: SERTRALINE HCL 100 MG TABLET PO SCH (20:47)
[2019-06-11 01:27] VITALS: BP 112/75
[2019-06-11 01:28] VITALS: BP 112/75
[2019-06-11] MEDS: LORazepam 2 MG TABLET PO PRN ×3 (01:32→20:26)
[2019-06-11] MEDS ORDERED: ChlordiazePOXIDE HCL 10 MG CAPSULE PO PRN (07:00)
[2019-06-11] MEDS: METOPROLOL SUCCINATE 50 MG ER TABLET PO SCH ×2 (08:32→20:25)
[2019-06-11] MEDS: FOLIC ACID 1 MG TABLET PO SCH (08:32)
[2019-06-11] MEDS: OMEPRAZOLE 20 MG CAPSULE PO SCH (08:32)
[2019-06-11] MEDS: ARIPiprazole 5 MG TABLET PO SCH (08:32)
[2019-06-11] MEDS: MULTIVITAMINS WITH MINERALS, THERAPEUTIC TABLET PO SCH (08:32)
[2019-06-11] MEDS: DOCUSATE SODIUM 100 MG CAPSULE PO SCH (08:33)
[2019-06-11 12:36] VITALS: BP 128/75
[2019-06-11 16:17] VITALS: BP 147/87
[2019-06-11] MEDS: SERTRALINE HCL 100 MG TABLET PO SCH (20:25)
[2019-06-11] MEDS: ZOLPIDEM TARTRATE 10 MG TABLET PO PRN (20:32)
[2019-06-12 06:09] VITALS: BP 135/79
[2019-06-12] MEDS: MULTIVITAMINS WITH MINERALS, THERAPEUTIC TABLET PO SCH (08:28)
[2019-06-12] MEDS: DOCUSATE SODIUM 100 MG CAPSULE PO SCH (08:28)
[2019-06-12] MEDS: ARIPiprazole 5 MG TABLET PO SCH (08:28)
[2019-06-12] MEDS: OMEPRAZOLE 20 MG CAPSULE PO SCH (08:28)
[2019-06-12] MEDS: METOPROLOL SUCCINATE 50 MG ER TABLET PO SCH (08:28)
[2019-06-12] MEDS: FOLIC ACID 1 MG TABLET PO SCH (08:28)
[2019-06-12 08:51] VITALS: BP 132/72
[2019-06-12] MEDS ORDERED: DILTIAZEM HCL CD 180 MG ER CAPSULE PO SCH (09:00)
[2019-06-12] MEDS: LORazepam 2 MG TABLET PO PRN (09:35)
[2019-06-12] MEDS ORDERED: DILT180C63 PO (14:44)
[2019-06-12] MEDS ORDERED: NALT50TA6 PO (14:44)
[2019-06-12] MEDS ORDERED: ARIP5TAB8 PO (14:44)
[2019-06-12] MEDS ORDERED: METO-558 PO (14:44)
[2019-06-12 16:09] VITALS: BP 117/74
[2019-06-13] MEDS ORDERED: METOPROLOL SUCCINATE 50 MG ER TABLET PO SCH (09:00)
== END 2019-06-12 17:33 | disposition home or self-care (01) | DRG 751 ==
LOC: B3A 03:37
PROVIDERS: ADMIT Psychiatry & Neurology Psychiatry; ATTEND Psychiatry & Neurology Psychiatry
DX: F33.2 Major depressive disorder, recurrent severe without psychotic features (principal); I48.91 Unspecified atrial fibrillation; R45.851 Suicidal ideations; F19.90 Other psychoactive substance use, unspecified, uncomplicated; F41.9 Anxiety disorder, unspecified; G47.00 Insomnia, unspecified; I10 Essential (primary) hypertension; K59.00 Constipation, unspecified; Z59.0 Homelessness; Z91.5 Personal history of self-harm; Z95.0 Presence of cardiac pacemaker
CPT/HCPCS: 83036; 84439; 84443

== ENCOUNTER 2019-06-22 22:00 | Inpatient (IN) | payer MEDICAID ==
[~2019-06-22] VITALS: Ht 172.7 cm; Wt 120.2 kg
[~2019-06-22 22:00] MED LIST changes: +ARIP5TAB8 PO; +DILT180C63 PO; -DILT240T13 PO; -FOLI1 PO; +METO-558 PO; -METO200T49 PO; -MULT-1239 PO; +NALT50TA6 PO; -OLAN2.5T3 PO; -OMEP20 PO; -THIA100T67 PO
[2019-06-22] MEDS ORDERED: HALOPERIDOL 5 MG TABLET PO PRN (23:00)
[2019-06-22 23:31] VITALS: BP 113/65
[2019-06-23] VITALS (11 sets, daily range): BP systolic 105–139; BP diastolic 62–85
[2019-06-23] MEDS: LORazepam 2 MG TABLET PO PRN ×3 (01:07→14:28)
[2019-06-23] MEDS: ZOLPIDEM TARTRATE 10 MG TABLET PO PRN (01:07)
[2019-06-23] MEDS ORDERED: CloNIDine HCL 0.1 MG TABLET PO PRN (01:30)
[2019-06-23] MEDS ORDERED: LOPERAMIDE HCL 2 MG CAPSULE PO PRN (01:30)
[2019-06-23] MEDS ORDERED: ONDANSETRON HCL 4 MG TABLET PO PRN (01:30)
[2019-06-23] MEDS ORDERED: BACITRACIN 28.4 GM OINTMENT TP PRN (01:30)
[2019-06-23] MEDS ORDERED: IBUPROFEN 600 MG TABLET PO PRN (01:30)
[2019-06-23] MEDS ORDERED: ALBUTEROL SULFATE HFA 90 MCG/PUFF 8 GM INHALER IH PRN (01:30)
[2019-06-23] MEDS ORDERED: MAG HYDROX/AL HYDROX/SIMETH ES 30 ML SUSPENSION UDCUP PO PRN (01:30)
[2019-06-23] MEDS ORDERED: ACETAMINOPHEN 325 MG TABLET PO PRN (01:30)
[2019-06-23] MEDS ORDERED: OMEPRAZOLE 20 MG CAPSULE PO PRN (01:30)
[2019-06-23] MEDS ORDERED: DOCUSATE SODIUM 100 MG CAPSULE PO PRN (01:30)
[2019-06-23] MEDS ORDERED: PETROLATUM,WHITE 28 GM JELLY TP PRN (01:30)
[2019-06-23] MEDS ORDERED: MAGNESIUM HYDROXIDE SUSPENSION 30 ML UDCUP PO PRN (01:30)
[2019-06-23] MEDS ORDERED: BENZOCAINE/MENTHOL LOZENGE MM PRN (01:30)
[2019-06-23 08:09] LABS: BASOPHILS % (AUTO) 0.6 % (0.0-2.0); EOSINOPHILS % (AUTO) 4.2 % (1.0-6.0); HEMATOCRIT 49.4 % (41-53); HEMOGLOBIN 16.2 g/dL (13.5-17.5); LYMPHOCYTES # (AUTO) 1.1 K/uL (1.0-4.8); LYMPHOCYTES % (AUTO) 19.5 % (22.0-44.0); MEAN CORPUSCULAR HEMOGLOBIN 29.3 pg (26.0-34.0); MEAN CORPUSCULAR HGB CONC 32.9 G/dL (31.0-37.0); MEAN CORPUSCULAR VOLUME 89 fL (80-100); MONOCYTES # (AUTO) 0.5 K/uL (0.1-1.0); MONOCYTES % (AUTO) 8.4 % (2.0-9.0); NEUTROPHILS # (AUTO) 3.8 K/uL (1.8-7.7); NEUTROPHILS % (AUTO) 67.3 % (40.0-70.0); PLATELET COUNT (AUTO) 213 K/uL (150-450); RED BLOOD CELL COUNT(AUTO) 5.53 MIL/uL (4.50-5.90); RED CELL DISTRIBUTION WIDTH 15.9 % (11.5-14.5)
[2019-06-23 08:15] LABS: HEMOGLOBIN A1C 5.4 % (4.5-6.2)
[2019-06-23 08:38] LABS: ALANINE AMINOTRANSFERASE 23 U/L (12-78); ALBUMIN 3.2 g/dL (3.4-5.0); ALKALINE PHOSPHATASE 78 U/L (46-116); ANION GAP 12 mmol/L (8-16); ASPARTATE AMINOTRANSFERASE 20 U/L (15-37); BILIRUBIN,TOTAL 0.2 mg/dL (0.1-1.0); CALCIUM, TOTAL 8.6 mg/dL (8.8-10.5); CARBON DIOXIDE 25 mmol/L (22-29); CHLORIDE 105 mmol/L (98-107); CHOL/HDL RATIO 4.5 (4.2-7.3); CHOLESTEROL 144 mg/dL (131-200); CREATININE 0.88 mg/dL (0.60-1.30); FREE T4 (FREE THYROXINE) 0.78 ng/dL (0.76-1.46); GLOMERULAR FILTR. RATE CALC > 60 mL/min (>60); GLUCOSE,RANDOM 108 mg/dL (70-110); HDL CHOLESTEROL 32 mg/dL (40-60); LDL CHOL (CALC.) 83 mg/dL (0-130); POTASSIUM 4.3 mmol/L (3.5-5.1); SODIUM SERUM 142 mmol/L (136-145); TRIGLYCERIDES 144 mg/dL (15-150); UREA NITROGEN, BLOOD 5 mg/dL (7-18)
[2019-06-23] MEDS: OMEPRAZOLE 20 MG CAPSULE PO SCH (09:25)
[2019-06-23] MEDS: DOCUSATE SODIUM 100 MG CAPSULE PO SCH (09:26)
[2019-06-23] MEDS: SULFAMETHOX/TRIMETH DS 800-160 MG/TABLET PO SCH ×2 (09:26→16:25)
[2019-06-23] MEDS: CEPHALEXIN MONOHYDRATE 500 MG CAPSULE PO SCH ×4 (09:26→20:16)
[2019-06-23] MEDS ORDERED: LORazepam 2 MG TABLET PO PRN (10:30)
[2019-06-23] MEDS: DILTIAZEM HCL CD 180 MG ER CAPSULE PO SCH (12:01)
[2019-06-23] MEDS: METOPROLOL SUCCINATE 50 MG ER TABLET PO SCH (12:02)
[2019-06-23] MEDS: SERTRALINE HCL 100 MG TABLET PO SCH (20:16)
[2019-06-23] MEDS: LORazepam 2 MG TABLET PO SCH (20:16)
[2019-06-24 00:12] VITALS: BP 113/70
[2019-06-24] MEDS: LORazepam 2 MG TABLET PO PRN ×2 (00:13→22:59)
[2019-06-24 08:23] VITALS: BP 113/69
[2019-06-24] MEDS: METOPROLOL SUCCINATE 50 MG ER TABLET PO SCH (09:37)
[2019-06-24] MEDS: SULFAMETHOX/TRIMETH DS 800-160 MG/TABLET PO SCH ×2 (09:37→16:12)
[2019-06-24] MEDS: ARIPiprazole 5 MG TABLET PO SCH (09:38)
[2019-06-24] MEDS: CEPHALEXIN MONOHYDRATE 500 MG CAPSULE PO SCH ×4 (09:38→20:25)
[2019-06-24] MEDS: DILTIAZEM HCL CD 180 MG ER CAPSULE PO SCH (09:38)
[2019-06-24] MEDS: DOCUSATE SODIUM 100 MG CAPSULE PO SCH (09:38)
[2019-06-24] MEDS: LORazepam 2 MG TABLET PO SCH ×6 (09:39→20:48)
[2019-06-24] MEDS: OMEPRAZOLE 20 MG CAPSULE PO SCH (09:39)
[2019-06-24 10:11] VITALS: BP 124/72
[2019-06-24 16:08] VITALS: BP 107/65
[2019-06-24] MEDS: SERTRALINE HCL 100 MG TABLET PO SCH (20:25)
[2019-06-25 05:36] VITALS: BP 120/81
[2019-06-25 08:18] VITALS: BP 111/64
[2019-06-25] MEDS: DOCUSATE SODIUM 100 MG CAPSULE PO SCH (08:35)
[2019-06-25] MEDS: LORazepam 2 MG TABLET PO SCH ×4 (08:35→20:35)
[2019-06-25] MEDS: OMEPRAZOLE 20 MG CAPSULE PO SCH (08:35)
[2019-06-25] MEDS: ARIPiprazole 5 MG TABLET PO SCH (08:35)
[2019-06-25] MEDS: SULFAMETHOX/TRIMETH DS 800-160 MG/TABLET PO SCH ×2 (08:36→16:51)
[2019-06-25] MEDS: CEPHALEXIN MONOHYDRATE 500 MG CAPSULE PO SCH ×4 (08:36→20:35)
[2019-06-25] MEDS: METOPROLOL SUCCINATE 50 MG ER TABLET PO SCH (08:36)
[2019-06-25] MEDS: DILTIAZEM HCL CD 180 MG ER CAPSULE PO SCH (08:36)
[2019-06-25 09:34] VITALS: BP 111/64
[2019-06-25] MEDS: LORazepam 2 MG TABLET PO PRN (13:45)
[2019-06-25 16:23] VITALS: BP 117/64
[2019-06-25] MEDS: SERTRALINE HCL 100 MG TABLET PO SCH (20:35)
[2019-06-26 00:26] VITALS: BP 112/68
[2019-06-26] MEDS: LORazepam 2 MG TABLET PO PRN (01:30)
[2019-06-26] MEDS ORDERED: LORazepam 1 MG TABLET PO PRN (07:00)
[2019-06-26] MEDS: LORazepam 1 MG TABLET PO SCH ×4 (08:21→20:11)
[2019-06-26] MEDS: SULFAMETHOX/TRIMETH DS 800-160 MG/TABLET PO SCH ×2 (08:21→16:13)
[2019-06-26] MEDS: METOPROLOL SUCCINATE 50 MG ER TABLET PO SCH (08:21)
[2019-06-26] MEDS: ARIPiprazole 5 MG TABLET PO SCH (08:21)
[2019-06-26] MEDS: DILTIAZEM HCL CD 180 MG ER CAPSULE PO SCH (08:21)
[2019-06-26] MEDS: CEPHALEXIN MONOHYDRATE 500 MG CAPSULE PO SCH ×4 (08:22→20:11)
[2019-06-26 08:28] VITALS: BP 109/69
[2019-06-26 16:00] VITALS: BP 126/68
[2019-06-26] MEDS: SERTRALINE HCL 100 MG TABLET PO SCH (20:11)
[2019-06-27] MEDS: LORazepam 2 MG TABLET PO PRN ×2 (00:52→09:21)
[2019-06-27 02:21] VITALS: BP 116/60
[2019-06-27 02:22] VITALS: BP 116/60
[2019-06-27] MEDS ORDERED: LORazepam 1 MG TABLET PO PRN (07:00)
[2019-06-27 08:26] VITALS: BP 114/72
[2019-06-27] MEDS: DILTIAZEM HCL CD 180 MG ER CAPSULE PO SCH (08:31)
[2019-06-27] MEDS: METOPROLOL SUCCINATE 50 MG ER TABLET PO SCH (08:31)
[2019-06-27] MEDS: ARIPiprazole 5 MG TABLET PO SCH (08:31)
[2019-06-27 09:56] VITALS: BP 114/72
[2019-06-27 16:00] VITALS: BP 102/66
[2019-06-27] MEDS: SERTRALINE HCL 100 MG TABLET PO SCH (20:07)
[2019-06-27] MEDS: ZOLPIDEM TARTRATE 10 MG TABLET PO PRN (22:36)
[2019-06-27 22:38] VITALS: BP 119/75
[2019-06-28 05:12] VITALS: BP 132/88
[2019-06-28 08:25] VITALS: BP 100/60
[2019-06-28] MEDS: METOPROLOL SUCCINATE 50 MG ER TABLET PO SCH (09:13)
[2019-06-28] MEDS: DILTIAZEM HCL CD 180 MG ER CAPSULE PO SCH (09:13)
[2019-06-28] MEDS: ARIPiprazole 5 MG TABLET PO SCH (10:05)
[2019-06-28 12:08] VITALS: BP 101/67
[2019-06-28 16:09] VITALS: BP 121/79
[2019-06-28] MEDS: LORazepam 2 MG TABLET PO PRN (18:01)
[2019-06-28] MEDS: SERTRALINE HCL 100 MG TABLET PO SCH (20:40)
[2019-06-29 01:36] VITALS: BP 123/71
[2019-06-29 08:43] VITALS: BP 101/67
[2019-06-29] MEDS: METOPROLOL SUCCINATE 50 MG ER TABLET PO SCH (08:43)
[2019-06-29] MEDS: ARIPiprazole 5 MG TABLET PO SCH (08:44)
[2019-06-29] MEDS: DILTIAZEM HCL CD 180 MG ER CAPSULE PO SCH (08:44)
[2019-06-29] MEDS: LORazepam 2 MG TABLET PO PRN (11:52)
[2019-06-29 16:36] VITALS: BP 103/78
[2019-06-29] MEDS: SERTRALINE HCL 100 MG TABLET PO SCH (20:09)
[2019-06-30] MEDS: ZOLPIDEM TARTRATE 10 MG TABLET PO PRN (00:24)
[2019-06-30] MEDS: LORazepam 2 MG TABLET PO PRN (00:24)
[2019-06-30 02:57] VITALS: BP 110/68
[2019-06-30] MEDS ORDERED: DILT180C63 PO (07:34)
[2019-06-30] MEDS: DILTIAZEM HCL CD 180 MG ER CAPSULE PO SCH (08:12)
[2019-06-30] MEDS: ARIPiprazole 5 MG TABLET PO SCH (08:12)
[2019-06-30] MEDS: METOPROLOL SUCCINATE 50 MG ER TABLET PO SCH (08:13)
[2019-06-30 08:36] VITALS: BP 122/72
== END 2019-06-30 10:15 | disposition home or self-care (01) | DRG 751 ==
LOC: B2S 23:04
PROVIDERS: ADMIT Psychiatry & Neurology Psychiatry; ATTEND Psychiatry & Neurology Psychiatry
DX: F33.2 Major depressive disorder, recurrent severe without psychotic features (principal); I48.91 Unspecified atrial fibrillation; F41.9 Anxiety disorder, unspecified; G47.00 Insomnia, unspecified; I10 Essential (primary) hypertension; K59.00 Constipation, unspecified; F10.20 Alcohol dependence, uncomplicated; Z59.0 Homelessness; Z79.899 Other long term (current) drug therapy; Z91.19 Patient's noncompliance with other medical treatment and regimen; Z91.5 Personal history of self-harm; Z95.0 Presence of cardiac pacemaker; Z88.0 Allergy status to penicillin; Z91.018 Allergy to other foods
CPT/HCPCS: 83036; 84439; 84443; 87081; G0480

== ENCOUNTER 2019-12-12 00:31 | Inpatient (IN) | payer MEDICAID ==
[2019-12-12] VITALS (8 sets, daily range): BP systolic 112–135; BP diastolic 74–86
[~2019-12-12] VITALS: Ht 170.2 cm; Wt 118.9 kg
[~2019-12-12 00:31] MED LIST changes: -NALT50TA6 PO
[2019-12-12] MEDS ORDERED: RIVA20TA PO (01:47)
[2019-12-12] MEDS ORDERED: GABA-531 PO (01:47)
[2019-12-12] MEDS ORDERED: INFLUENZA VIRUS VACCINE QVS 2019-20 (3YR+)/PF 60 MCG/0.5 ML SYRINGE IM ONE (03:45)
[2019-12-12] MEDS ORDERED: PNEUMOCOCCAL VACCINE POLYVALENT 0.5 ML VIAL [PPSV23] IM ONE (03:45)
[2019-12-12] MEDS ORDERED: HALOPERIDOL 5 MG TABLET PO PRN (04:00)
[2019-12-12] MEDS: LORazepam 2 MG TABLET PO PRN ×4 (04:39→20:13)
[2019-12-12] MEDS ORDERED: LOPERAMIDE HCL 2 MG CAPSULE PO PRN (09:00)
[2019-12-12] MEDS ORDERED: ALBUTEROL SULFATE HFA 90 MCG/PUFF 8 GM INHALER IH PRN (09:00)
[2019-12-12] MEDS ORDERED: GuaiFENesin/D-METHORPHAN [SUGAR-FREE] 200-20MG/10 ML SYRUP UDCUP PO PRN (09:00)
[2019-12-12] MEDS ORDERED: MAG HYDROX/AL HYDROX/SIMETH ES 30 ML SUSPENSION UDCUP PO PRN (09:00)
[2019-12-12] MEDS ORDERED: DOCUSATE SODIUM 100 MG CAPSULE PO PRN (09:00)
[2019-12-12] MEDS ORDERED: MAGNESIUM HYDROXIDE SUSPENSION 30 ML UDCUP PO PRN (09:00)
[2019-12-12] MEDS ORDERED: ACETAMINOPHEN 325 MG TABLET PO PRN (09:00)
[2019-12-12] MEDS ORDERED: ONDANSETRON HCL 4 MG TABLET PO PRN (09:00)
[2019-12-12] MEDS ORDERED: RIVAROXABAN 20 MG TABLET PO SCH (09:00)
[2019-12-12] MEDS ORDERED: NICOTINE 14 MG/24 HOUR PATCH TD PRN (09:00)
[2019-12-12] MEDS ORDERED: PETROLATUM,WHITE 28 GM JELLY TP PRN (09:00)
[2019-12-12] MEDS: SERTRALINE HCL 100 MG TABLET PO SCH (12:33)
[2019-12-12] MEDS: METOPROLOL SUCCINATE 50 MG ER TABLET PO SCH (15:48)
[2019-12-12] MEDS: DILTIAZEM HCL CD 180 MG ER CAPSULE PO SCH (15:48)
[2019-12-12] MEDS: RIVAROXABAN 20 MG TABLET PO SCH (16:49)
[2019-12-13 06:35] VITALS: BP 141/85
[2019-12-13] MEDS: LORazepam 2 MG TABLET PO PRN ×4 (06:59→20:17)
[2019-12-13 07:49] LABS: BASOPHILS % (AUTO) 0.3 % (0.0-2.0); HEMATOCRIT 46.3 % (41-53); HEMOGLOBIN 15.3 g/dL (13.5-17.5); LYMPHOCYTES # (AUTO) 1.7 K/uL (1.0-4.8); MEAN CORPUSCULAR HEMOGLOBIN 28.6 pg (26.0-34.0); MEAN CORPUSCULAR HGB CONC 33.1 G/dL (31.0-37.0); MEAN CORPUSCULAR VOLUME 87 fL (80-100); MONOCYTES # (AUTO) 0.6 K/uL (0.1-1.0); MONOCYTES % (AUTO) 8.6 % (2.0-9.0); NEUTROPHILS # (AUTO) 4.4 K/uL (1.8-7.7); NEUTROPHILS % (AUTO) 64.1 % (40.0-70.0); PLATELET COUNT (AUTO) 138 K/uL (150-450); RED BLOOD CELL COUNT(AUTO) 5.34 MIL/uL (4.50-5.90); RED CELL DISTRIBUTION WIDTH 13.8 % (11.5-14.5)
[2019-12-13 08:14] LABS: ALANINE AMINOTRANSFERASE 28 U/L (12-78); ALBUMIN 3.1 g/dL (3.4-5.0); ALKALINE PHOSPHATASE 79 U/L (46-116); ANION GAP 7 mmol/L (8-16); ASPARTATE AMINOTRANSFERASE 19 U/L (15-37); CALCIUM, TOTAL 8.7 mg/dL (8.8-10.5); CARBON DIOXIDE 30 mmol/L (22-29); CHLORIDE 100 mmol/L (98-107); CHOL/HDL RATIO 6.1 (4.2-7.3); CHOLESTEROL 134 mg/dL (131-200); CREATININE 0.96 mg/dL (0.60-1.30); FREE T4 (FREE THYROXINE) 0.96 ng/dL (0.76-1.46); GLOMERULAR FILTR. RATE CALC > 60 mL/min (>60); GLUCOSE,RANDOM 99 mg/dL (70-110); HDL CHOLESTEROL 22 mg/dL (40-60); LDL CHOL (CALC.) 40 mg/dL (0-130); POTASSIUM 3.5 mmol/L (3.5-5.1); SODIUM SERUM 137 mmol/L (136-145); TOTAL PROTEIN, SERUM 6.4 g/dL (6.4-8.2); TRIGLYCERIDES 362 mg/dL (15-150); UREA NITROGEN, BLOOD 13 mg/dL (7-18)
[2019-12-13 08:15] LABS: AMPHET/METH SCREEN,URINE NEGATIVE (NEGATIVE); BARBITURATE SCREEN, URINE NEGATIVE (NEGATIVE); BENZODIAZEPINES SCREEN,URINE POSITIVE (NEGATIVE); CANNABINOID SCREEN,URINE NEGATIVE (NEGATIVE); COCAINE SCREEN,URINE NEGATIVE (NEGATIVE); METHADONE SCREEN, URINE NEGATIVE (NEGATIVE); OPIATE SCREEN,URINE NEGATIVE (NEGATIVE)
[2019-12-13 08:17] LABS: PHENCYCLIDINE SCREEN,URINE NEGATIVE (NEGATIVE)
[2019-12-13] MEDS: DILTIAZEM HCL CD 180 MG ER CAPSULE PO SCH (08:19)
[2019-12-13] MEDS: METOPROLOL SUCCINATE 50 MG ER TABLET PO SCH (08:19)
[2019-12-13] MEDS: SERTRALINE HCL 100 MG TABLET PO SCH (08:19)
[2019-12-13 09:07] VITALS: BP 118/84
[2019-12-13 16:07] VITALS: BP 123/76
[2019-12-13] MEDS: RIVAROXABAN 20 MG TABLET PO SCH (16:08)
[2019-12-14 00:35] VITALS: BP 110/83
[2019-12-14 08:29] VITALS: BP 119/67
[2019-12-14] MEDS: METOPROLOL SUCCINATE 50 MG ER TABLET PO SCH (08:33)
[2019-12-14] MEDS: SERTRALINE HCL 100 MG TABLET PO SCH (08:33)
[2019-12-14] MEDS: DILTIAZEM HCL CD 180 MG ER CAPSULE PO SCH (08:33)
[2019-12-14 16:06] VITALS: BP 106/69
[2019-12-14] MEDS: RIVAROXABAN 20 MG TABLET PO SCH (17:05)
[2019-12-14] MEDS: ZOLPIDEM TARTRATE 10 MG TABLET PO PRN (20:15)
[2019-12-15 00:31] VITALS: BP 116/75
[2019-12-15] MEDS: SERTRALINE HCL 100 MG TABLET PO SCH (08:36)
[2019-12-15] MEDS: METOPROLOL SUCCINATE 50 MG ER TABLET PO SCH (08:37)
[2019-12-15] MEDS: DILTIAZEM HCL CD 180 MG ER CAPSULE PO SCH (08:38)
[2019-12-15 08:43] VITALS: BP 140/71
[2019-12-15 08:58] VITALS: BP 140/71
[2019-12-15 16:25] VITALS: BP 112/71
[2019-12-15] MEDS: RIVAROXABAN 20 MG TABLET PO SCH (16:42)
[2019-12-15] MEDS: GABAPENTIN 300 MG CAPSULE PO SCH (16:42)
[2019-12-15] MEDS: ZOLPIDEM TARTRATE 10 MG TABLET PO PRN (20:37)
[2019-12-16 05:30] VITALS: BP 118/91
[2019-12-16 09:31] VITALS: BP 97/68
[2019-12-16 09:45] VITALS: BP 119/69
[2019-12-16] MEDS: METOPROLOL SUCCINATE 50 MG ER TABLET PO SCH (09:47)
[2019-12-16] MEDS: DILTIAZEM HCL CD 180 MG ER CAPSULE PO SCH (09:47)
[2019-12-16] MEDS: GABAPENTIN 300 MG CAPSULE PO SCH ×2 (09:47→16:36)
[2019-12-16] MEDS: SERTRALINE HCL 100 MG TABLET PO SCH (09:48)
[2019-12-16 16:02] VITALS: BP 124/71
[2019-12-16] MEDS: RIVAROXABAN 20 MG TABLET PO SCH (16:36)
[2019-12-16] MEDS: ZOLPIDEM TARTRATE 10 MG TABLET PO PRN (21:06)
[2019-12-17 07:23] VITALS: BP 129/89
[2019-12-17 08:12] VITALS: BP 117/61
[2019-12-17] MEDS: SERTRALINE HCL 100 MG TABLET PO SCH (08:42)
[2019-12-17] MEDS: DILTIAZEM HCL CD 180 MG ER CAPSULE PO SCH (08:43)
[2019-12-17] MEDS: METOPROLOL SUCCINATE 50 MG ER TABLET PO SCH (08:43)
[2019-12-17] MEDS: GABAPENTIN 300 MG CAPSULE PO SCH ×2 (08:43→16:16)
[2019-12-17] MEDS: MULTIVITAMINS WITH MINERALS, THERAPEUTIC TABLET PO SCH (12:31)
[2019-12-17] MEDS: OMEGA-3/DHA/EPA/FISH OIL 1,000 MG CAPSULE PO SCH (12:31)
[2019-12-17] MEDS: THIAMINE HCL 100 MG TABLET PO SCH (12:31)
[2019-12-17] MEDS: RIVAROXABAN 20 MG TABLET PO SCH (16:16)
[2019-12-17 17:08] VITALS: BP 106/70
[2019-12-17] MEDS: ZOLPIDEM TARTRATE 10 MG TABLET PO PRN (20:59)
[2019-12-18 05:41] VITALS: BP 105/76
[2019-12-18 08:30] VITALS: BP 125/64
[2019-12-18] MEDS: GABAPENTIN 300 MG CAPSULE PO SCH ×2 (09:03→16:20)
[2019-12-18] MEDS: OMEGA-3/DHA/EPA/FISH OIL 1,000 MG CAPSULE PO SCH (09:03)
[2019-12-18] MEDS: THIAMINE HCL 100 MG TABLET PO SCH (09:03)
[2019-12-18] MEDS: FOLIC ACID 1 MG TABLET PO SCH (09:03)
[2019-12-18] MEDS: METOPROLOL SUCCINATE 50 MG ER TABLET PO SCH (09:03)
[2019-12-18] MEDS: MULTIVITAMINS WITH MINERALS, THERAPEUTIC TABLET PO SCH (09:03)
[2019-12-18] MEDS: SERTRALINE HCL 100 MG TABLET PO SCH (09:03)
[2019-12-18] MEDS: DILTIAZEM HCL CD 180 MG ER CAPSULE PO SCH (09:03)
[2019-12-18 16:08] VITALS: BP 101/68
[2019-12-18] MEDS: RIVAROXABAN 20 MG TABLET PO SCH (16:20)
[2019-12-18] MEDS: ZOLPIDEM TARTRATE 10 MG TABLET PO PRN (21:01)
[2019-12-19 06:34] VITALS: BP 112/74
[2019-12-19 08:20] VITALS: BP 123/66
[2019-12-19] MEDS: OMEGA-3/DHA/EPA/FISH OIL 1,000 MG CAPSULE PO SCH (08:23)
[2019-12-19] MEDS: GABAPENTIN 300 MG CAPSULE PO SCH ×2 (08:23→16:41)
[2019-12-19] MEDS: MULTIVITAMINS WITH MINERALS, THERAPEUTIC TABLET PO SCH (08:23)
[2019-12-19] MEDS: THIAMINE HCL 100 MG TABLET PO SCH (08:23)
[2019-12-19] MEDS: DILTIAZEM HCL CD 180 MG ER CAPSULE PO SCH (08:23)
[2019-12-19] MEDS: FOLIC ACID 1 MG TABLET PO SCH (08:23)
[2019-12-19] MEDS: METOPROLOL SUCCINATE 50 MG ER TABLET PO SCH (08:23)
[2019-12-19] MEDS: SERTRALINE HCL 100 MG TABLET PO SCH (08:23)
[2019-12-19 16:06] VITALS: BP 101/60
[2019-12-19] MEDS: RIVAROXABAN 20 MG TABLET PO SCH (16:41)
[2019-12-19] MEDS: ZOLPIDEM TARTRATE 10 MG TABLET PO PRN (20:52)
[2019-12-20] MEDS: DILTIAZEM HCL CD 180 MG ER CAPSULE PO SCH (08:24)
[2019-12-20] MEDS: OMEGA-3/DHA/EPA/FISH OIL 1,000 MG CAPSULE PO SCH (08:24)
[2019-12-20] MEDS: FOLIC ACID 1 MG TABLET PO SCH (08:24)
[2019-12-20 08:25] VITALS: BP 100/61
[2019-12-20] MEDS: SERTRALINE HCL 100 MG TABLET PO SCH (08:25)
[2019-12-20] MEDS: GABAPENTIN 300 MG CAPSULE PO SCH ×2 (08:25→16:36)
[2019-12-20] MEDS: THIAMINE HCL 100 MG TABLET PO SCH (08:25)
[2019-12-20] MEDS: METOPROLOL SUCCINATE 50 MG ER TABLET PO SCH (08:25)
[2019-12-20] MEDS: MULTIVITAMINS WITH MINERALS, THERAPEUTIC TABLET PO SCH (08:25)
[2019-12-20 16:05] VITALS: BP 112/73
[2019-12-20] MEDS: RIVAROXABAN 20 MG TABLET PO SCH (16:36)
[2019-12-20] MEDS: ZOLPIDEM TARTRATE 10 MG TABLET PO PRN (21:07)
[2019-12-21 06:16] VITALS: BP 101/63
[2019-12-21 08:15] VITALS: BP 105/80
[2019-12-21] MEDS: OMEGA-3/DHA/EPA/FISH OIL 1,000 MG CAPSULE PO SCH (09:09)
[2019-12-21] MEDS: MULTIVITAMINS WITH MINERALS, THERAPEUTIC TABLET PO SCH (09:09)
[2019-12-21] MEDS: DILTIAZEM HCL CD 180 MG ER CAPSULE PO SCH (09:09)
[2019-12-21 09:10] VITALS: BP 124/76
[2019-12-21] MEDS: THIAMINE HCL 100 MG TABLET PO SCH (09:10)
[2019-12-21] MEDS: FOLIC ACID 1 MG TABLET PO SCH (09:10)
[2019-12-21] MEDS: METOPROLOL SUCCINATE 50 MG ER TABLET PO SCH (09:10)
[2019-12-21] MEDS: SERTRALINE HCL 100 MG TABLET PO SCH (09:10)
[2019-12-21] MEDS: GABAPENTIN 300 MG CAPSULE PO SCH ×2 (09:10→16:39)
[2019-12-21 16:11] VITALS: BP 100/63
[2019-12-21] MEDS: RIVAROXABAN 20 MG TABLET PO SCH (16:39)
[2019-12-21] MEDS: ZOLPIDEM TARTRATE 10 MG TABLET PO PRN (20:53)
[2019-12-22 00:05] VITALS: BP 122/65
[2019-12-22 08:15] VITALS: BP 103/67
[2019-12-22 09:10] VITALS: BP 110/67
[2019-12-22] MEDS: DILTIAZEM HCL CD 180 MG ER CAPSULE PO SCH (09:14)
[2019-12-22] MEDS: GABAPENTIN 300 MG CAPSULE PO SCH ×2 (09:14→16:41)
[2019-12-22] MEDS: SERTRALINE HCL 100 MG TABLET PO SCH (09:14)
[2019-12-22] MEDS: METOPROLOL SUCCINATE 50 MG ER TABLET PO SCH (09:14)
[2019-12-22] MEDS: FOLIC ACID 1 MG TABLET PO SCH (09:15)
[2019-12-22] MEDS: MULTIVITAMINS WITH MINERALS, THERAPEUTIC TABLET PO SCH (09:15)
[2019-12-22] MEDS: THIAMINE HCL 100 MG TABLET PO SCH (09:15)
[2019-12-22] MEDS: OMEGA-3/DHA/EPA/FISH OIL 1,000 MG CAPSULE PO SCH (09:15)
[2019-12-22] MEDS: LORazepam 2 MG TABLET PO PRN ×2 (10:31→16:51)
[2019-12-22 16:15] VITALS: BP 115/65
[2019-12-22] MEDS: RIVAROXABAN 20 MG TABLET PO SCH (16:41)
[2019-12-22] MEDS: ZOLPIDEM TARTRATE 10 MG TABLET PO PRN (20:55)
[2019-12-23 01:32] VITALS: BP 112/65
[2019-12-23 08:07] VITALS: BP 121/77
[2019-12-23] MEDS: SERTRALINE HCL 100 MG TABLET PO SCH (08:33)
[2019-12-23] MEDS: GABAPENTIN 300 MG CAPSULE PO SCH ×2 (08:33→16:26)
[2019-12-23] MEDS: OMEGA-3/DHA/EPA/FISH OIL 1,000 MG CAPSULE PO SCH (08:33)
[2019-12-23] MEDS: THIAMINE HCL 100 MG TABLET PO SCH (08:33)
[2019-12-23] MEDS: MULTIVITAMINS WITH MINERALS, THERAPEUTIC TABLET PO SCH (08:33)
[2019-12-23] MEDS: METOPROLOL SUCCINATE 50 MG ER TABLET PO SCH (08:33)
[2019-12-23] MEDS: DILTIAZEM HCL CD 180 MG ER CAPSULE PO SCH (08:33)
[2019-12-23] MEDS: FOLIC ACID 1 MG TABLET PO SCH (08:33)
[2019-12-23] MEDS: LORazepam 2 MG TABLET PO PRN ×2 (09:45→16:39)
[2019-12-23] MEDS: RIVAROXABAN 20 MG TABLET PO SCH (16:27)
[2019-12-23 16:51] VITALS: BP 103/72
[2019-12-23] MEDS: ZOLPIDEM TARTRATE 10 MG TABLET PO PRN (20:37)
[2019-12-24 06:42] VITALS: BP 119/76
[2019-12-24] MEDS: DILTIAZEM HCL CD 180 MG ER CAPSULE PO SCH (08:34)
[2019-12-24] MEDS: MULTIVITAMINS WITH MINERALS, THERAPEUTIC TABLET PO SCH (08:34)
[2019-12-24] MEDS: SERTRALINE HCL 100 MG TABLET PO SCH (08:34)
[2019-12-24] MEDS: THIAMINE HCL 100 MG TABLET PO SCH (08:34)
[2019-12-24] MEDS: OMEGA-3/DHA/EPA/FISH OIL 1,000 MG CAPSULE PO SCH (08:34)
[2019-12-24] MEDS: METOPROLOL SUCCINATE 50 MG ER TABLET PO SCH (08:34)
[2019-12-24] MEDS: GABAPENTIN 300 MG CAPSULE PO SCH ×2 (08:35→16:22)
[2019-12-24] MEDS: FOLIC ACID 1 MG TABLET PO SCH (08:35)
[2019-12-24 08:41] VITALS: BP 125/62
[2019-12-24] MEDS: LORazepam 2 MG TABLET PO PRN ×2 (09:50→16:22)
[2019-12-24 16:10] VITALS: BP 105/73
[2019-12-24] MEDS: RIVAROXABAN 20 MG TABLET PO SCH (16:22)
[2019-12-24] MEDS: ZOLPIDEM TARTRATE 10 MG TABLET PO PRN (20:24)
[2019-12-25 08:40] VITALS: BP 124/71
[2019-12-25] MEDS: GABAPENTIN 300 MG CAPSULE PO SCH ×2 (09:19→16:14)
[2019-12-25] MEDS: THIAMINE HCL 100 MG TABLET PO SCH (09:19)
[2019-12-25] MEDS: MULTIVITAMINS WITH MINERALS, THERAPEUTIC TABLET PO SCH (09:19)
[2019-12-25] MEDS: FOLIC ACID 1 MG TABLET PO SCH (09:19)
[2019-12-25] MEDS: DILTIAZEM HCL CD 180 MG ER CAPSULE PO SCH (09:19)
[2019-12-25] MEDS: SERTRALINE HCL 100 MG TABLET PO SCH (09:19)
[2019-12-25] MEDS: OMEGA-3/DHA/EPA/FISH OIL 1,000 MG CAPSULE PO SCH (09:20)
[2019-12-25] MEDS: METOPROLOL SUCCINATE 50 MG ER TABLET PO SCH (09:20)
[2019-12-25] MEDS: LORazepam 2 MG TABLET PO PRN ×2 (10:02→16:14)
[2019-12-25] MEDS: RIVAROXABAN 20 MG TABLET PO SCH (16:14)
[2019-12-25 16:22] VITALS: BP 118/70
[2019-12-25] MEDS: ZOLPIDEM TARTRATE 10 MG TABLET PO PRN (20:47)
[2019-12-26 08:08] VITALS: BP 107/68
[2019-12-26] MEDS: FOLIC ACID 1 MG TABLET PO SCH (09:18)
[2019-12-26] MEDS: GABAPENTIN 300 MG CAPSULE PO SCH ×2 (09:18→16:33)
[2019-12-26] MEDS: SERTRALINE HCL 100 MG TABLET PO SCH (09:18)
[2019-12-26] MEDS: THIAMINE HCL 100 MG TABLET PO SCH (09:18)
[2019-12-26] MEDS: OMEGA-3/DHA/EPA/FISH OIL 1,000 MG CAPSULE PO SCH (09:18)
[2019-12-26] MEDS: MULTIVITAMINS WITH MINERALS, THERAPEUTIC TABLET PO SCH (09:18)
[2019-12-26] MEDS: DILTIAZEM HCL CD 180 MG ER CAPSULE PO SCH (09:19)
[2019-12-26] MEDS: METOPROLOL SUCCINATE 50 MG ER TABLET PO SCH (09:19)
[2019-12-26] MEDS: LORazepam 2 MG TABLET PO PRN ×2 (10:26→17:25)
[2019-12-26 16:18] VITALS: BP 106/66
[2019-12-26] MEDS: RIVAROXABAN 20 MG TABLET PO SCH (16:32)
[2019-12-26] MEDS: ZOLPIDEM TARTRATE 10 MG TABLET PO PRN (20:51)
[2019-12-27] MEDS: MULTIVITAMINS WITH MINERALS, THERAPEUTIC TABLET PO SCH (08:14)
[2019-12-27] MEDS: OMEGA-3/DHA/EPA/FISH OIL 1,000 MG CAPSULE PO SCH (08:14)
[2019-12-27] MEDS: SERTRALINE HCL 100 MG TABLET PO SCH (08:15)
[2019-12-27] MEDS: GABAPENTIN 300 MG CAPSULE PO SCH (08:15)
[2019-12-27] MEDS: FOLIC ACID 1 MG TABLET PO SCH (08:15)
[2019-12-27] MEDS: THIAMINE HCL 100 MG TABLET PO SCH (08:15)
[2019-12-27] MEDS: DILTIAZEM HCL CD 180 MG ER CAPSULE PO SCH (08:15)
[2019-12-27] MEDS: METOPROLOL SUCCINATE 50 MG ER TABLET PO SCH (08:16)
[2019-12-27] MEDS ORDERED: GABA-531 PO (08:19)
[2019-12-27] MEDS ORDERED: SERT100T12 PO (08:19)
== END 2019-12-27 10:25 | disposition home or self-care (01) | DRG 751 ==
LOC: B2S 02:00
PROVIDERS: ADMIT Psychiatry & Neurology Child & Adolescent Psychiatry; ATTEND Psychiatry & Neurology Child & Adolescent Psychiatry
DX: F33.2 Major depressive disorder, recurrent severe without psychotic features (principal); R45.851 Suicidal ideations; I48.91 Unspecified atrial fibrillation; I10 Essential (primary) hypertension; J44.9 Chronic obstructive pulmonary disease, unspecified; K59.00 Constipation, unspecified; Z59.0 Homelessness; Z88.0 Allergy status to penicillin
CPT/HCPCS: 80307; 83036; 84439; 84443; 90732